=== PATIENT | female | born 2000 | race Caucasian/White ===

== ENCOUNTER 2021-08-13 08:56 | Observation (INO) | payer OTHER ==
[~2021-08-13] VITALS: Ht 177.8 cm; Wt 124.6 kg
[2021-08-13 10:55] LABS: Influenza A, PCR NEGATIVE (NEGATIVE); Influenza B, PCR NEGATIVE (NEGATIVE); Resp Syncytial Virus, PCR NEGATIVE (NEGATIVE); SARS-Cov-2 (COVID-19) PCR, MMC NEGATIVE (NEGATIVE)
[2021-08-13 11:41] LABS: Source, Urine Clean Catch
[2021-08-13 11:52] LABS: Bilirubin, Urine Neg (Neg); Blood, Urine 4+ (Neg); Glucose Qualitative, Urine Neg (Neg); Ketones, Urine 4+ (Neg); Leukocyte Esterase, Urine 1+ (Neg); Nitrite, Urine Neg (Neg); Protein, Urine 3+ (Neg); Urobilinogen, Urine NORM (Normal)
[2021-08-13 12:04] LABS: Appearance, Urine Hazy (Clear); Color, Urine Pale Yellow (P-Yellow)
[2021-08-13 12:07] LABS: Amorphous Light (0-Heavy); Bacteria Few /hpf; Mucus Heavy (0-Heavy); Squamous Epithelial Cells Many /hpf (Few); Yeast/Fungi Urine Rare /hpf
[2021-08-13 13:08] LABS: BASOPHILS ABSOLUTE AUTO 0.01 K/mm3 (0.00-0.23); BASOPHILS PERCENT AUTO 0 % (0-2); EOSINOPHILS PERCENT AUTO 0 % (0-6); Hematocrit 47.3 % (33.0-51.0); Hemoglobin 15.5 g/dL (11.5-16.0); IMMATURE GRAN ABSOLUTE AUTO 0.04 K/mm3 (0.00-0.10); IMMATURE GRAN PERCENT AUTO 0 % (0-1); LYMPHOCYTES ABSOLUTE AUTO 0.44 K/mm3 (0.84-5.20); LYMPHOCYTES PERCENT AUTO 3 % (21-46); MONOCYTES ABSOLUTE AUTO 0.44 K/mm3 (0.16-1.47); MONOCYTES PERCENT AUTO 3 % (4-13); Mean Corpuscular HGB 28.6 pg (26.0-34.0); Mean Corpuscular HGB Conc 32.8 g/dL (31.5-36.5); Mean Corpuscular Volume 87 fL (80-100); Mean Platelet Volume 9.8 fL (9.1-12.4); NEUTROPHILS ABSOLUTE AUTO 12.81 K/mm3 (1.96-9.15); NEUTROPHILS PERCENT AUTO 93 % (41-73); Platelet Count 362 K/mm3 (150-400); RDW Coefficient Variation 11.9 % (11.7-14.2); Red Blood Cell Count 5.42 M/mm3 (3.80-5.20); White Blood Cell Count 13.74 K/mm3 (4.00-11.30)
[2021-08-13 13:31] LABS: Alanine Aminotransfer (ALT/SGP 38 U/L (12-78); Albumin, Blood 4.5 g/dL (3.4-5.0); Alk Phos 76 U/L (50-136); Anion Gap 11 mmol/L (6-16); Aspartate Aminotrans (AST/SGOT 13 U/L (12-37); Bilirubin, Total 0.5 mg/dL (0.1-1.0); Blood Urea Nitrogen 8 mg/dL (8-24); Bun/Creatinine Ratio 13.4 (12.0-20.0); CO2, Blood 22 mmol/L (21-32); Calcium, Blood 10.2 mg/dL (8.5-10.1); Chloride, Blood 102 mmol/L (98-108); Globulin, Blood 4.6 g/dL (2.2-4.0); Glomerular Filtration Rate >60 (60-); Glucose, Blood 155 mg/dL (70-99); Potassium, Blood 3.3 mmol/L (3.5-5.5); Sodium, Blood 135 mmol/L (136-145); Total Protein, Blood 9.1 g/dL (6.4-8.2)
--- NOTE | 2021-08-13 17:31 | NUR ---
PT ARRIVED TO [place] [id number] AT 1710. REPORT RECEIVED FROM DAVON LORA IN ER. PT A/O X 4 STEADY ON FEET, PLEASANT AND COOPERATIVE. IV NS AT 125 STARTED. PT DENIED ANY SYMPTOMS OF NAUSEA ON ARRIVAL. PT ORIENTED TO ROOM/CALL LIGHT. BED IN LOW POSITION ON ARRIVAL. PT REPORTED SHE IS CURRENTLY HAVING HER MONTHLY MENSES. SUPPLIES GIVEN TO HER.
[2021-08-13] MEDS ORDERED: ONDA4ODT MM (17:36)
[2021-08-13 18:01] LABS: Hemoglobin 14.1 g/dL (11.5-16.0)
[2021-08-14 04:42] LABS: BASOPHILS ABSOLUTE AUTO 0.03 K/mm3 (0.00-0.23); BASOPHILS PERCENT AUTO 0 % (0-2); EOSINOPHILS ABSOLUTE AUTO 0.02 K/mm3 (0.00-0.68); EOSINOPHILS PERCENT AUTO 0 % (0-6); Hematocrit 42.6 % (33.0-51.0); Hemoglobin 14.3 g/dL (11.5-16.0); IMMATURE GRAN ABSOLUTE AUTO 0.02 K/mm3 (0.00-0.10); IMMATURE GRAN PERCENT AUTO 0 % (0-1); LYMPHOCYTES ABSOLUTE AUTO 1.91 K/mm3 (0.84-5.20); LYMPHOCYTES PERCENT AUTO 27 % (21-46); MONOCYTES ABSOLUTE AUTO 0.67 K/mm3 (0.16-1.47); MONOCYTES PERCENT AUTO 9 % (4-13); Mean Corpuscular HGB 29.2 pg (26.0-34.0); Mean Corpuscular HGB Conc 33.6 g/dL (31.5-36.5); Mean Corpuscular Volume 87 fL (80-100); Mean Platelet Volume 9.5 fL (9.1-12.4); NEUTROPHILS ABSOLUTE AUTO 4.44 K/mm3 (1.96-9.15); NEUTROPHILS PERCENT AUTO 63 % (41-73); Platelet Count 300 K/mm3 (150-400); RDW Standard Deviation 38.5 fL (35.1-46.3); White Blood Cell Count 7.09 K/mm3 (4.00-11.30)
[2021-08-14 05:03] LABS: Anion Gap 6 mmol/L (6-16); Blood Urea Nitrogen 8 mg/dL (8-24); Bun/Creatinine Ratio 12.2 (12.0-20.0); CO2, Blood 24 mmol/L (21-32); Calcium, Blood 9.4 mg/dL (8.5-10.1); Chloride, Blood 109 mmol/L (98-108); Creatinine, Blood 0.66 mg/dL (0.40-1.00); Glomerular Filtration Rate >60 (60-); Glucose, Blood 97 mg/dL (70-99); Potassium, Blood 3.4 mmol/L (3.5-5.5); Sodium, Blood 139 mmol/L (136-145)
--- NOTE | 2021-08-14 07:51 | NUR ---
PT IS A/OX4. SHE DID NOT HAVE ANY C/O UNTIL LAB DRAW AROUND 0400. SHE HAD C/O OF MILD PAIN IN HER CLAVICLE/POSTERIOR NECK. AND MILD NAUSEA. SHE WAS GIVEN IV ZOFRAN WHICH DID HELP HER NAUSEA. PO TYLENOL WAS ORDERED WHICH SHE VOMITED UP. SHE DID GET SOME LIQUID TYLENOL ORDERED TO HELP MANANGE HER PAIN THAT WAS TAKEN AFTER SHIFT CHANGE PER TELE MONITOR SHE WAS SR/77. THE DAY SHIFT NURSE WAS AWARE OF THE SITUATION AND HAS ASSUMED CARE.
[2021-08-14] MEDS ORDERED: PANT40 PO (16:02)
--- NOTE | 2021-08-14 17:29 | NUR ---
08/14/21 1729 Jourdan Adkins History, Chart, Medications and Allergies reviewed before start of procedure. Patient confirms NPO status and agrees with scheduled surgery. 3-LEAD EKG REVIEWED WITH PHYSICIAN PRIOR TO START OF PROCEDURE. MONITOR INTACT WITH CONTINUOUS PULSE OXIMETRY AND INTERMITTENT BP. PATIENT DETERMINED TO BE ASA APPROPRIATE FOR PROPOFOL SEDATION PRIOR TO START OF PROCEDURE BY DR. STONE. Bite Block Placed, REMOVED AFTER PROCEDURE.
--- NOTE | 2021-08-14 18:06 | NUR ---
LATE ENTRY: RESUMED CARE OF PT POST EGD AT 1520. REPORT RECEIVED FROM LEON LORA. PT ARRIVED A/O X 4. VSWNL. PT DENIED N/V/PAIN.
--- NOTE | 2021-08-14 18:08 | NUR ---
DISCHARGE SUMMARY: PT DC'D TO HOME VIA [facility] AT 1645 TODAY. EDUCATED PT ON DISCHARGE INSTRUCTIONS, MEDICATIONS AND EDUCATION MATERIALS. PT YNES. PT ASSISTED WITH PACKING UP HER BELONGINGS AND SHE REPORTED SHE HAD ALL HER FACIAL JEWELERY PACKED UP. PT ESCORTED TO POV VIA WC BY ANA BOYKIN.
== END 2021-08-14 16:45 | disposition home or self-care (01) ==
LOC: ER 08:56 → MEDS 08:57 → ERHOLD 08:57 → MEDS 17:09
PROVIDERS: Emergency Medicine; Student in an Organized Health Care Education/Training Program; ADMIT Internal Medicine
PROC: 0DB38ZX Excision of Lower Esophagus, Via Natural or Artificial Opening Endoscopic, Diagnostic (ICD-10-PCS; 2021-08-14)
PROC: 0DB18ZX Excision of Upper Esophagus, Via Natural or Artificial Opening Endoscopic, Diagnostic (ICD-10-PCS; 2021-08-14)
PROC: 0DB68ZX Excision of Stomach, Via Natural or Artificial Opening Endoscopic, Diagnostic (ICD-10-PCS; principal; 2021-08-14 13:00)
DX: K20.91 Esophagitis, unspecified with bleeding (principal); E87.6 Hypokalemia; J45.909 Unspecified asthma, uncomplicated; E66.9 Obesity, unspecified; Z68.41 Body mass index [BMI] 40.0-44.9, adult; K44.9 Diaphragmatic hernia without obstruction or gangrene; K29.01 Acute gastritis with bleeding; Z20.822 Contact with and (suspected) exposure to COVID-19
CPT/HCPCS: 0241U; 36415; 71045; 80048; 80053; 81001; 81025; 85014; 85018; 85025; 87086; 90686; 93005; 93010; 96374; 96375; 96376; 99285-25; A9270; C9113; G0008; G0378; J0780; J1170; J2250; J2405; J2704; J3480; J7030; J7120

== ENCOUNTER → 2022-03-16 | Outpatient (CLI) | payer OTHER ==
[~2022-03-16] MED LIST: ONDA4ODT MM; PANT40 PO
[2022-03-18 11:09] LABS: CHLAMYDIA TRACHOMATIS, NAA Negative (Negative); HPV 16 Negative (Negative); HPV 18 Negative (Negative); HPV OTHER HR TYPES Negative (Negative)
== END | disposition home or self-care (01) ==
LOC: LAB 15:00 → LAB SHORT 15:00
PROVIDERS: Nurse Practitioner Family
DX: Z12.4 Encounter for screening for malignant neoplasm of cervix (principal)
CPT/HCPCS: 87491; 87591; 87624; G0123

== ENCOUNTER → 2024-10-29 | Outpatient (CLI) | payer OTHER ==
[2024-11-01 14:17] LABS: APTIMA MEDIA TYPE Urine; C. TRACHOMATIS BY TMA Negative (Negative); N. GONORRHOEAE BY TMA Negative (Negative); SPECIMEN SOURCE Urine; T. VAGINALIS BY TMA Negative (Negative)
== END ==
LOC: LAB SHORT 10:49 → LAB 10:49
DX: Z11.3 Encounter for screening for infections with a predominantly sexual mode of transmission (principal)
CPT/HCPCS: 87491; 87591; 87661